=== PATIENT | female | born 1985 | race Caucasian/White ===

== ENCOUNTER 2016-09-22 11:50 | Inpatient (IN) | payer OTHER ==
[~2016-09-22] VITALS: Ht 149.9 cm; Wt 83.5 kg
[2016-09-22] MEDS ORDERED: LACTATED RINGERS 1,000 ML IV SCH (17:08)
[2016-09-22] MEDS ORDERED: NALBUPHINE HYDROCHLORIDE 10 MG/ML VIAL IM ONE (17:10)
[2016-09-22] MEDS ORDERED: OXYTOCIN 10 UNITS/ML VIAL IM SCH (17:10)
[2016-09-22] MEDS ORDERED: CARBOPROST 250 MCG/ML AMP IM PRN (17:10)
[2016-09-22] MEDS ORDERED: NALBUPHINE HYDROCHLORIDE 10 MG/ML VIAL IVP PRN (17:10)
[2016-09-22] MEDS ORDERED: PROMETHAZINE 25 MG/ML VIAL IVP PRN (17:10)
[2016-09-22] MEDS ORDERED: METHYLERGONOVINE 0.2 MG/ML AMP IM PRN (17:10)
[2016-09-22 17:49] VITALS: BP 110/73
[2016-09-22] MEDS ORDERED: OXYTOCIN 20 UNITS/LR PREMIX 1,000 ML IV SCH (18:00)
[2016-09-22] MEDS ORDERED: OXYTOCIN 20 UNITS/LR PREMIX 1,000 ML IV ONE (18:13)
[2016-09-22 18:34] LABS: BILIRUBIN,URINE NEGATIVE (NEGATIVE); BLOOD, URINE NEGATIVE (NEGATIVE); COLOR,URINE ORANGE (YELLOW); LEUKOCYTE ESTERASE ,URINE TRACE (NEGATIVE); NITRITE, URINE NEGATIVE (NEGATIVE); PROTEIN,URINE NEGATIVE (NEGATIVE); UGLUCOSE TRACE (NEGATIVE); UROBILINOGEN,URINE 0.2 EU/dL (0.2 - 1)
[2016-09-22 18:35] LABS: BASOPHILS # (AUTO) 0.1 K/uL (0.00-0.22); BASOPHILS % (AUTO) 0.6 % (0.0-2.0); EOSINOPHILS % (AUTO) 0.5 % (0.0-4.0); HEMATOCRIT 35.5 % (36-48); HEMOGLOBIN 11.3 g/dL (12.0-16.0); LYMPHOCYTES # (AUTO) 2.2 K/uL (2.5-16.5); LYMPHOCYTES % (AUTO) 25.8 % (20.5-51.1); MEAN CORPUSCULAR HEMOGLOBIN 24 pg (27-31); MEAN CORPUSCULAR HGB CONC 32 g/dL (33-37); MEAN CORPUSCULAR VOLUME 77 fL (80-94); MONOCYTES # (AUTO) 0.6 K/uL (0.8-1.0); MONOCYTES % (AUTO) 6.9 % (1.7-9.3); NEUTROPHILS # (AUTO) 5.6 K/uL (1.8-7.7); NEUTROPHILS % (AUTO) 66.2 % (42.2-75.2); PLATELET COUNT (AUTO) 207 K/uL (140-450); RED BLOOD CELL COUNT(AUTO) 4.61 MIL/uL (4.20-5.40); RED CELL DISTRIBUTION WIDTH 14.9 % (11.6-13.7); WHITE BLOOD COUNT (AUTO) 8.5 K/uL (4.8-10.8)
[2016-09-22] MEDS ORDERED: NALBUPHINE HYDROCHLORIDE 10 MG/ML VIAL ONE (18:40)
[2016-09-22 18:45] LABS: APPEARANCE,URINE HAZY (CLEAR)
[2016-09-22 18:46] LABS: ANION GAP 14.1 (8-16); CALCIUM 7.9 mg/dL (8.5-10.1); CARBON DIOXIDE 22.7 mmol/L (21-32); CREATININE 0.6 mg/dL (0.6-1.3); POTASSIUM 3.8 mmol/L (3.5-5.1)
[2016-09-22 18:54] LABS: ALBUMIN 2.2 g/dL (3.4-5.0); TOTAL BILIRUBIN 0.3 mg/dL (0.0-1.0)
[2016-09-22 18:55] LABS: BACTERIA,URINE FEW /HPF (None Seen); RBC,URINE NONE SEEN /HPF (0-5); SQUAMOUS EPITHELIAL CELL,UR FEW /LPF (0-3 (FEW)); WBC,URINE 0-5 (RARE) /HPF (0-5)
[2016-09-22] MEDS ORDERED: ROPIVACAINE 0.2%/NS PREMIX 250 ML EPI ONE (19:37)
[2016-09-23] MEDS ORDERED: METHYLERGONOVINE 0.2 MG TAB PO PRN (05:10)
[2016-09-23] MEDS ORDERED: BENZOCAINE/MENTHOL 20%-0.5% 60 GM CAN TP PRN (05:10)
[2016-09-23] MEDS ORDERED: HYDROcodone/APAP 5/325 MG 1 TAB TAB PO PRN (05:10)
[2016-09-23] MEDS ORDERED: WITCH HAZEL 40 PAD PACKAGE TP PRN (05:10)
[2016-09-23] MEDS ORDERED: OXYTOCIN 10 UNITS/ML VIAL IM PRN (05:10)
[2016-09-23] MEDS ORDERED: oxyCODONE/APAP 5/325 MG 1 TAB TAB PO PRN (05:10)
[2016-09-23] MEDS ORDERED: IBUPROFEN 800 MG TAB PO PRN (05:10)
[2016-09-23] MEDS ORDERED: TEMAZEPAM 15 MG CAP PO PRN (05:10)
[2016-09-23] MEDS ORDERED: METHYLERGONOVINE 0.2 MG/ML AMP IM PRN (05:10)
[2016-09-23] MEDS ORDERED: AMPICILLIN 2,000 MG in NACL 0.9% 100 ML IV SCH (05:55)
[2016-09-23] MEDS ORDERED: AMPICILLIN 2,000 MG VIAL ONE (06:01)
[2016-09-23] MEDS ORDERED: OXYTOCIN 10 UNITS/ML VIAL ONE (07:50)
--- NOTE | 2016-09-23 08:22 | NUR ---
PATIENT HAS BEEN SCREENED AND CATEGORIZED LOW NUTRITION RISK. PATIENT WILL BE SEEN WITHIN 7 DAYS OF ADMISSION. 09/29/[address]
[2016-09-23] MEDS ORDERED: LIDOCAINE 1% 50 ML ONE (09:07)
[2016-09-23] MEDS ORDERED: DOCUSATE SOD/SENNA 50/8.6 MG 1 TAB PO SCH (21:00)
[2016-09-24 06:40] LABS: HEMATOCRIT 30.4 % (36-48); HEMOGLOBIN 9.8 g/dL (12.0-16.0)
== END 2016-09-25 17:20 | disposition home or self-care (01) | DRG 560 ==
LOC: OBSVTOIN 11:50 → MLD 11:50 → MFCC 09-23 13:15
PROVIDERS: ADMIT Obstetrics & Gynecology; ATTEND Obstetrics & Gynecology
PROC: 10907ZC Drainage of Amniotic Fluid, Therapeutic from Products of Conception, Via Natural or Artificial Opening (ICD-10-PCS; 2016-09-22)
PROC: 00HU33Z Insertion of Infusion Device into Spinal Canal, Percutaneous Approach (ICD-10-PCS; 2016-09-22)
PROC: 3E0R3CZ (ICD-10-PCS; 2016-09-22)
PROC: 10D07Z6 Extraction of Products of Conception, Vacuum, Via Natural or Artificial Opening (ICD-10-PCS; principal; 2016-09-23)
PROC: 0HQ9XZZ Repair Perineum Skin, External Approach (ICD-10-PCS; 2016-09-23)
DX: O64.0XX0 Obstructed labor due to incomplete rotation of fetal head, not applicable or unspecified (principal); E66.9 Obesity, unspecified; O99.214 Obesity complicating childbirth; O70.0 First degree perineal laceration during delivery; Z37.0 Single live birth; Z3A.40 40 weeks gestation of pregnancy; Z90.49 Acquired absence of other specified parts of digestive tract; Z83.3 Family history of diabetes mellitus; Z80.3 Family history of malignant neoplasm of breast; Z80.7 Family history of other malignant neoplasms of lymphoid, hematopoietic and related tissues; Z80.8 Family history of malignant neoplasm of other organs or systems; Z28.21 Immunization not carried out because of patient refusal; Z68.37 Body mass index [BMI] 37.0-37.9, adult
CPT/HCPCS: 36415; 51702; 76805; 80053; 81001; 85018; 85025; 86592; 86886; 86900; 86901; J0290; J2001; J2300; J2590; J2795; J7120; Q0092

== ENCOUNTER 2018-02-13 01:41 | Inpatient (IN) | payer OTHER ==
[~2018-02-13] VITALS: Ht 152.4 cm; Wt 79.8 kg
[2018-02-13] MEDS ORDERED: PROMETHAZINE 25 MG/ML VIAL IVP PRN (02:20)
[2018-02-13] MEDS ORDERED: METHYLERGONOVINE 0.2 MG/ML AMP IM PRN ×2 (02:20→20:10)
[2018-02-13] MEDS ORDERED: OXYTOCIN 10 UNITS/ML VIAL IM ONE (02:20)
[2018-02-13] MEDS ORDERED: OXYTOCIN 20 UNITS in LACTATED RINGERS 1,000 ML IV SCH (02:20)
[2018-02-13] MEDS ORDERED: NALBUPHINE 10 MG/ML AMP IVP PRN (02:20)
[2018-02-13 02:57] LABS: APPEARANCE,URINE CLOUDY (CLEAR); BILIRUBIN,URINE NEGATIVE (NEGATIVE); BLOOD, URINE NEGATIVE (NEGATIVE); COLOR,URINE YELLOW (YELLOW); LEUKOCYTE ESTERASE ,URINE 2+ (NEGATIVE); NITRITE, URINE NEGATIVE (NEGATIVE); UGLUCOSE NEGATIVE (NEGATIVE)
[2018-02-13 03:04] LABS: BARBITURATE, URINE NEG. ng/ml (NEG <=200); BENZODIAZEPINE, URINE NEG. ng/mL (NEG <=200); CANNABINOID, URINE POS. ng/mL (NEG <=50); COCAINE, URINE NEG. ng/mL (NEG <=300); OPIATE, URINE NEG. ng/mL (NEG <=2000); PHENCYCLIDINE SCREEN,URINE NEG. ng/mL (NEG <=25)
[2018-02-13 03:10] LABS: ALBUMIN 2.4 g/dL (3.4-5.0); ANION GAP 8.3 (8-16); CARBON DIOXIDE 25.2 mmol/L (21-32); CREATININE 0.5 mg/dL (0.6-1.3); POTASSIUM 3.5 mmol/L (3.5-5.1); TOTAL BILIRUBIN 0.3 mg/dL (0.0-1.0)
[2018-02-13 03:12] LABS: RBC,URINE 0-5 (RARE) /HPF (0-5)
[2018-02-13 03:13] LABS: WBC,URINE 80-100 /HPF (0-5)
[2018-02-13 03:26] VITALS: BP 108/68
[2018-02-13] MEDS ORDERED: FERR325E14 PO (03:26)
[2018-02-13] MEDS ORDERED: PREN-546 PO (03:26)
[2018-02-13 03:27] LABS: BASOPHILS % (AUTO) 0.2 % (0.0-2.0); EOSINOPHILS # (AUTO) 0.1 K/uL (0-0.4); EOSINOPHILS % (AUTO) 0.8 % (0.0-4.0); HEMATOCRIT 33.1 % (36-48); HEMOGLOBIN 10.8 g/dL (12.0-16.0); LYMPHOCYTES # (AUTO) 1.9 K/uL (2.5-16.5); LYMPHOCYTES % (AUTO) 30.6 % (20.5-51.1); MEAN CORPUSCULAR HEMOGLOBIN 25 pg (27-31); MEAN CORPUSCULAR HGB CONC 33 g/dL (33-37); MEAN CORPUSCULAR VOLUME 78.1 fL (80-94); MONOCYTES # (AUTO) 0.5 K/uL (0.8-1.0); MONOCYTES % (AUTO) 7.6 % (1.7-9.3); NEUTROPHILS # (AUTO) 3.8 K/uL (1.8-7.7); NEUTROPHILS % (AUTO) 60.8 % (42.2-75.2); PLATELET COUNT (AUTO) 184 K/uL (140-450); RED BLOOD CELL COUNT(AUTO) 4.23 MIL/uL (4.20-5.40); RED CELL DISTRIBUTION WIDTH 15.9 % (11.6-13.7); WHITE BLOOD COUNT (AUTO) 6.3 K/uL (4.8-10.8)
[2018-02-13] MEDS: LACTATED RINGERS 1,000 ML IV SCH ×4 (03:30→14:59)
[2018-02-13] MEDS ORDERED: BUPIVACAINE 0.125%/NS PREMIX 250 ML ONE (06:49)
--- NOTE | 2018-02-13 08:15 | NUR ---
PATIENT HAS BEEN SCREENED AND CATEGORIZED LOW NUTRITION RISK. PATIENT WILL BE SEEN WITHIN 7 DAYS OF ADMISSION. 02/20/18 TOÑO GILBERT MBA, RD
[2018-02-13 12:19] LABS: RAPID PLASMA REAGIN NON-REACTIVE (Non Reactiv)
[2018-02-13] MEDS ORDERED: OXYTOCIN 10 UNITS/ML VIAL ONE (16:16)
[2018-02-13] MEDS ORDERED: MEASLES, MUMPS, AND RUBELLA 1 VIAL SQVAC PRN (20:10)
[2018-02-13] MEDS ORDERED: IBUPROFEN 800 MG TAB PO PRN (20:10)
[2018-02-13] MEDS ORDERED: HYDROcodone/APAP 5/325 MG 1 TAB TAB PO PRN (20:10)
[2018-02-13] MEDS ORDERED: TEMAZEPAM 15 MG CAP PO PRN (20:10)
[2018-02-13] MEDS ORDERED: OXYTOCIN 10 UNITS/ML VIAL IM PRN (20:10)
[2018-02-13] MEDS ORDERED: DOCUSATE SOD/SENNA 50/8.6 MG 1 TAB PO SCH (21:00)
[2018-02-14 05:25] LABS: HEMOGLOBIN 9.8 g/dL (12.0-16.0)
[2018-02-14] MEDS: oxyCODONE/APAP 5/325 MG 1 TAB TAB PO PRN ×4 (06:43→19:46)
[2018-02-14] MEDS ORDERED: DOCUSATE SOD/SENNA 50/8.6 MG 1 TAB PO SCH (21:00)
[2018-02-15] MEDS: oxyCODONE/APAP 5/325 MG 1 TAB TAB PO PRN (07:14)
[2018-02-15] MEDS ORDERED: IBUP-2213 PO (11:52)
== END 2018-02-15 13:55 | disposition home or self-care (01) | DRG 560 ==
LOC: MLD 01:41 → MFCC 20:06
PROVIDERS: ADMIT Obstetrics & Gynecology; ATTEND Obstetrics & Gynecology
PROC: 10E0XZZ Delivery of Products of Conception, External Approach (ICD-10-PCS; principal; 2018-02-13)
PROC: 10907ZC Drainage of Amniotic Fluid, Therapeutic from Products of Conception, Via Natural or Artificial Opening (ICD-10-PCS; 2018-02-13)
PROC: 3E0R3BZ Introduction of Anesthetic Agent into Spinal Canal, Percutaneous Approach (ICD-10-PCS; 2018-02-13)
PROC: 00HU33Z Insertion of Infusion Device into Spinal Canal, Percutaneous Approach (ICD-10-PCS; 2018-02-13)
PROC: 3E033VJ Introduction of Other Hormone into Peripheral Vein, Percutaneous Approach (ICD-10-PCS; 2018-02-13)
DX: O80 Encounter for full-term uncomplicated delivery (principal); Z80.9 Family history of malignant neoplasm, unspecified; Z37.0 Single live birth; Z3A.38 38 weeks gestation of pregnancy; Z83.3 Family history of diabetes mellitus
CPT/HCPCS: 36415; 51702; 59409; 80053; 80305; 81001; 85018; 85025; 86592; 86886; 86900; 86901; 87086; J2590; J3490; J7120